=== PATIENT | female | born 1995 | race Two or more races ===

== ENCOUNTER → 2019-04-23 | Outpatient (CLI) | payer OTHER | LOC: OD 17:02 | PROVIDERS: ATTEND Family Medicine | DX: N91.2 Amenorrhea, unspecified (principal) | CPT/HCPCS: 36415; 84703 ==

== ENCOUNTER → 2020-03-29 | Outpatient (CLI) | payer OTHER | LOC: OD 09:33 | PROVIDERS: ATTEND Family Medicine | DX: N92.6 Irregular menstruation, unspecified (principal) | CPT/HCPCS: 36415; 84703 ==